=== PATIENT | female | born 1960 | race Caucasian/White ===

== ENCOUNTER 2022-06-26 08:16 | Day surgery (SDC) | payer MEDICARE ==
[2022-06-26] MEDS ORDERED: BUPIVACAINE 0.5% VIAL IJ ONE (08:17)
[2022-06-26] MEDS ORDERED: DIPRIVAN 200 MG/20 ML IV ONE (09:49)
[2022-06-26] MEDS ORDERED: Lactated Ringers 1,000 ML IV ONE (10:09)
--- NOTE | 2022-06-26 10:42 | XRAY ---
Indication: Right knee genicular nerve block. Intraoperative fluoroscopy provided for 20 seconds. 2 digital spot image right knee submitted for interpretation demonstrates anterior needle tips projecting medial/lateral supracondylar and medial tibial plateau. Correlate with intraoperative findings/report.
[2022-06-26 11:31] LABS: Amphetamine,Urine NEGATIVE (NEGATIVE); Barbiturate,Urine NEGATIVE (NEGATIVE); Benzodiazepine,Urine NEGATIVE (NEGATIVE); Cocaine,Urine NEGATIVE (NEGATIVE); Methadone,Urine NEGATIVE (NEGATIVE); Opiate,Urine POSITIVE (NEGATIVE); PCP,Urine NEGATIVE (NEGATIVE); THC,Urine NEGATIVE (NEGATIVE)
--- NOTE | 2022-06-26 11:52 | XRAY ---
20 seconds of fluoroscopy was used in surgery for a right genicular nerve block.
== END 2022-06-26 10:15 | disposition home or self-care (01) ==
LOC: SDC-PAIN 08:16
PROVIDERS: ATTEND Psychiatry & Neurology Pain Medicine
DX: M17.11 Unilateral primary osteoarthritis, right knee (principal); Z79.899 Other long term (current) drug therapy
CPT/HCPCS: 64454; 73560; 77002; 80307; 82947; J2704

== ENCOUNTER 2023-02-19 15:43 | Day surgery (SDC) | payer MEDICARE ==
[2023-02-19] MEDS ORDERED: XYLOCAINE-MPF 1% 5ML SDV IJ ONE (15:44)
[2023-02-19] MEDS ORDERED: Depo-Medrol 40 MG/ML IM ONE (15:44)
[2023-02-19] MEDS ORDERED: BUPIVACAINE 0.5% VIAL IJ ONE (15:44)
--- NOTE | 2023-02-19 20:59 | XRAY ---
Indication: Right knee injection. Intraoperative fluoroscopy provided for 11 seconds. Single digital spot image submitted for interpretation demonstrates needle tip projecting over right femur intercondylar notch. Small amount of contrast injected for needle tip placement. Correlate with intraoperative findings/report.
--- NOTE | 2023-02-19 21:00 | XRAY ---
Indication: Left knee injection. Intraoperative fluoroscopy provided for 6 seconds. Single digital spot image submitted for interpretation demonstrates needle tip projecting over left femur intercondylar notch. Small amount of contrast injected for needle tip placement. Correlate with intraoperative findings/report.
--- NOTE | 2023-02-20 08:46 | XRAY ---
6 seconds of fluoroscopy was used in surgery for a left intra-articular knee injection.
--- NOTE | 2023-02-20 08:46 | XRAY ---
11 seconds of fluoroscopy was used in surgery for a right intra-articular knee injection.
== END 2023-02-19 18:16 | disposition home or self-care (01) ==
LOC: SDC-PAIN 15:43
PROVIDERS: ATTEND Psychiatry & Neurology Pain Medicine
DX: M17.0 Bilateral primary osteoarthritis of knee (principal); E11.9 Type 2 diabetes mellitus without complications; Z79.899 Other long term (current) drug therapy
CPT/HCPCS: 20610; 73560; 77002; 82947; J1030; Q9966